=== PATIENT | female | born 2005 | race Asian ===

== ENCOUNTER 2024-04-05 01:35 | Outpatient (CLI) | payer OTHER, SELFPAY | END 2024-04-05 01:36 | disposition home or self-care (01) | LOC: AMB 04-10 01:38 | PROVIDERS: Visit Provider Internal Medicine | DX: F10.129 Alcohol abuse with intoxication, unspecified (principal); R11.10 Vomiting, unspecified | CPT/HCPCS: A0425; A0427 ==

== ENCOUNTER 2024-04-05 02:06 | Emergency (ER) | payer OTHER, SELFPAY ==
[2024-04-05 02:14] VITALS: BP 102/50; PULSE 115; RESP 20; TEMP 36.9; O2SAT 98; BMI 21.9
[2024-04-05] MEDS: ONDANSETRON 2 MG/ML inj 4 MG IVP (02:14)
[2024-04-05 02:23] VITALS: O2SAT 98
--- NOTE | 2024-04-05 03:44 | ED_ITS ---
HPI - Alcohol General Chief Complaint: Alcohol/Intoxication Stated Complaint: ETOH Time Seen by Provider: 04/05/24 02:11 History of Present Illness HPI narrative: Patient is a 18-year-old [facility] to who was found intoxicated and vomiting on campus. Patient is able to answer questions and states that she has had too much to drink but no other substance ingestion tonight. She is not certain how much alcohol she has consumed. She denies any recent trauma or assault. She states that she has no other symptoms of headache or abdominal pain. No further history is available. Review of Systems Status of ROS Reports: unobtainable due to mental status [facility] Medical History No significant past medical history Surgical History No significant past surgical history Social History Smoking Status: Never smoker Second hand tobacco smoke exposure: No How often do you have a drink containing alcohol: monthly or less AUDIT-C Alcohol total score: 1 Non-prescribed substance use: denies use Exam Narrative: Exam Narrative: EXAM GENERAL: Patient appears intoxicated and vomiting. EYES: No scleral icterus. LYMPH: No supraclavicular or cervical lymphadenopathy. SKIN: Visible skin seen during exam normal or with benign process only. EXT: No dependent lower extremity pedal edema. HEART: Regular rate and rhythm with no murmurs, rubs, or gallops. LUNGS: Clear to auscultation bilaterally with no crackles or wheezes. ABD: Soft, non tender, non distended. PSYCH: Good eye contact, speech is not pressured. Const: Vital Signs, click to edit/add: Vital Signs - 24 hr 04/05/24 02:14 04/05/24 02:23 Temperature 98.5 F Pulse Rate [Right Pulse Oximeter] 115 H Respiratory Rate 20 Blood Pressure [Ri ght Upper Arm] 102/50 L Pulse Oximetry 98 98 Oxygen Delivery Me thod Room Air Course Course ED Course: Patient seen and examined. 4 mg of IV Zofran given. Vital Signs Vital signs: Initial Vital Signs Temperature 98.5 F 04/05/24 02:14 Temperature Source Temporal Artery Scan 04/05/24 02:14 Pulse Rate 115 H 04/05/24 02:14 Respiratory Rate 20 04/05/24 02:14 Blood Pressure 102/50 L 04/05/24 02:14 Blood Pressure Mean 67 L 04/05/24 02:14 Blood Pressure Position Supine 04/05/24 02:14 Pulse Oximetry 98 04/05/24 02:14 Oxygen Delivery Method Room Air 04/05/24 02:14 Vital Signs Temperature 98.5 F 04/05/24 02:14 Pulse Rate 115 H 04/05/24 02:14 Respiratory Rate 20 04/05/24 02:14 Blood Pressure 102/50 L 04/05/24 02:14 Pulse Oximetry 98 04/05/24 02:14 Oxygen Delivery Method Room Air 04/05/24 02:14 Temperature 98.5 F 04/05/24 02:14 Pulse Rate 115 H 04/05/24 02:14 Respiratory Rate 04/05/24 02:14 Blood Pressure 102/50 L 04/05/24 02:14 Pulse Oximetry 98 04/05/24 02:23 Oxygen Delivery Method Room Air 04/05/24 02:14 Medications Administered Medications: Generic Name Dose Route Start Last Admin Trade Name Freq PRN Reason Stop Dose Admin Ondansetron HCl 4 mg 04/05/24 02:11 04/05/24 02:14 Ondansetron 2 Mg/Ml Inj IVP 04/05/24 02:12 4 mg ONCE ONE Administration MDM - Alcohol MDM Narrative Medical decision making narrative: Patient presents acutely intoxicated and vomiting. He is able to answer questions to limited extent is observed for 4 mg of IV Zofran is given. We did observe her for safe what time till she is able to function on her own and patient is released back to campus with a warning about excessive alcohol consumption. Differential diagnosis includes but not limited to toxic ingestion alcohol intoxication poly substance abuse. Discharge Plan Discharge Clinical Impression: Alcoholic intoxication Condition: Stable Instructions: Alcohol Intoxication (ED) Activity Level: No Restrictions Discharge Diet: Regular Stand Alone Forms: MyHealth Info Instructions
[2024-04-05 04:01] VITALS: BP 100/53; PULSE 99; RESP 20; O2SAT 98
[2024-04-05 05:01] VITALS: BP 102/64; PULSE 94; RESP 20; O2SAT 99
[2024-04-05 06:00] VITALS: PULSE 96; O2SAT 97
[2024-04-05 06:01] VITALS: BP 103/57; PULSE 90; RESP 15; O2SAT 97
== END 2024-04-05 08:03 | disposition home or self-care (01) ==
LOC: ED 07:51
PROVIDERS: Emergency Provider Internal Medicine
DX: F10.129 Alcohol abuse with intoxication, unspecified (principal)
CPT/HCPCS: 94761; 96374; 99283; A0425; A0427; J2405